=== PATIENT | male | born 2000 | race Caucasian/White ===

== ENCOUNTER 2021-01-30 01:42 | Emergency (ER) | payer SELFPAY ==
[~2021-01-30] VITALS: Ht 188 cm; Wt 84.1 kg
[2021-01-30 01:44] VITALS: BP 152/81; Ht 188 cm; Wt 84.1 kg
[2021-01-30] MEDS ORDERED: CLEOCIN HCL300 MG PO (02:28)
== END 2021-01-30 02:32 | disposition home or self-care (01) ==
LOC: D.ER 01:42
DX: S81.811A Laceration without foreign body, right lower leg, initial encounter (principal); W45.8XXA Other foreign body or object entering through skin, initial encounter; Y93.9 Activity, unspecified; Y92.9 Unspecified place or not applicable